=== PATIENT | female | born 1930 | race Caucasian/White ===

== ENCOUNTER 2017-10-29 12:49 | Emergency (ER) | payer MEDICARE ==
[~2017-10-29] VITALS: Ht 165.1 cm; Wt 83.5 kg
[2017-10-29] MEDS ORDERED: IV NS 0.9% 1,000 ML BAG IV ONE (13:00)
--- NOTE | 2017-10-29 13:00 | NUR ---
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 PATIENT IS A/OX 2. BREATHING EVEN AND UNLABORED. NO SOB. VITALS STABLE. SAFETY AND COMFORT MEASURES IN PLACE. AWAITING MD ORDERS.
--- NOTE | 2017-10-29 13:20 | NUR ---
NEW IV STARTED ON LFA, 20 G. BLOOD DRAWN AND SENT TO LAB.
[2017-10-29 13:24] LABS: BASOPHILS # (AUTO) 0.4 /CMM (0.0-0.2); BASOPHILS % (AUTO) 3.2 % (0.0-2.0); EOSINOPHILS # (AUTO) 0.1 /CMM (0.0-0.7); EOSINOPHILS % (AUTO) 0.7 % (0.0-6.0); HEMATOCRIT 43 % (33-45); HEMOGLOBIN 14.5 g/dL (11.5-14.8); LYMPHOCYTES # (AUTO) 2.4 /CMM (0.8-4.8); LYMPHOCYTES % (AUTO) 19.4 % (20.0-44.0); MEAN CORPUSCULAR HEMOGLOBIN 28 PG (26.0-33.0); MEAN CORPUSCULAR HGB CONC 34 g/dl (31.0-36.0); MEAN CORPUSCULAR VOLUME 82 fL (82-100); MONOCYTES # (AUTO) 1.2 /CMM (0.1-1.30); MONOCYTES % (AUTO) 9.7 % (2.0-12.0); NEUTROPHILS # (AUTO) 8.4 /CMM (1.8-8.9); PLATELET COUNT (AUTO) 184 /CMM (150-450); RDW COEFFICIENT OF VARIATION 13.4 (11.5-15.0); RED BLOOD CELL COUNT(AUTO) 5.26 MIL/uL (4.0-5.2); WHITE BLOOD COUNT (AUTO) 12.4 K/uL (4.3-11.0)
[2017-10-29 13:39] LABS: INR 1.04 (0.85-1.15)
[2017-10-29 13:43] LABS: TROPONIN I < 0.017 ng/mL (0.00-0.056)
--- NOTE | 2017-10-29 13:45 | NUR ---
PATIENT TAKEN TO CT VIA STRETCHER.
--- NOTE | 2017-10-29 14:03 | NUR ---
PATIENT RETURNED FROM CT IN STABLE CONDITION.
[2017-10-29] MEDS ORDERED: LEVO125T8 PO (14:09)
[2017-10-29] MEDS ORDERED: ALEN70TA3 PO (14:09)
[2017-10-29] MEDS ORDERED: ASPI-1169 PO (14:09)
--- NOTE | 2017-10-29 14:15 | NUR ---
URINE OBTAINED AND SENT TO LAB.
[2017-10-29 14:33] LABS: APPEARANCE,URINE CLOUDY (CLEAR); BILIRUBIN,URINE NEGATIVE (NEGATIVE); BLOOD, URINE 3+ Ery/uL (NEGATIVE); COLOR,URINE YELLOW (YELLOW); KETONES,URINE NEGATIVE (NEGATIVE); LEUKOCYTE ESTERASE ,URINE NEGATIVE (NEGATIVE); NITRITE, URINE NEGATIVE (NEGATIVE); PROTEIN,URINE 1+ mg/dl (NEGATIVE); UGLUCOSE NEGATIVE (NEGATIVE); UROBILINOGEN,URINE 0.2 EU/dL (0.2)
[2017-10-29 14:55] LABS: CALCIUM, SERUM 9.2 mg/dL (8.5-10.1); CARBON DIOXIDE 27 mmol/L (21-32); CHLORIDE 99 mmol/L (98-107); CREATININE 1.1 mg/dL (0.6-1.3); GLUCOSE 110 mg/dL (74-106); POTASSIUM 4.1 mmol/L (3.5-5.1); SODIUM SERUM 137 mmol/L (136-145); UREA NITROGEN, BLOOD 16 mg/dL (7-18)
[2017-10-29 15:01] LABS: ALANINE AMINOTRANSFERASE 15 U/L (12-78); ALBUMIN 3.3 g/dL (3.4-5.0); ALKALINE PHOSPHATASE 82 U/L (46-116); ASPARTATE AMINOTRANSFERASE 21 U/L (15-37); BILIRUBIN,DIRECT 0.2 mg/dL (0.0-0.2); BILIRUBIN,TOTAL 1.1 mg/dL (0.2-1.0)
[2017-10-29 15:13] LABS: RBC,URINE 51-80 /HPF (0-2)
[2017-10-29 15:14] LABS: BACTERIA,URINE 1+ /HPF (None Seen); URINE AMORPHOUS URATE Few /HPF (None Seen)
--- NOTE | 2017-10-29 15:28 | NUR ---
IV removed. Catheter intact and site benign. Pressure and 4x4 applied to site. No bleeding noted.
[2017-10-29 15:30] VITALS: BP 179/94
--- NOTE | 2017-10-29 15:30 | NUR ---
REFLEX LACTIC ACID NOT NEEDED PER DR HARMON SINCE PATIENT IS BEING D/C'D HOME
--- NOTE | 2017-10-29 15:40 | NUR ---
Patient discharged to home in stable condition. Written and verbal after care instructions given. Patient verbalizes understanding of instruction.
[2017-10-31] MEDS ORDERED: LEVO250T2 PO (17:26)
== END 2017-10-29 15:31 | disposition home or self-care (01) ==
LOC: ER 12:50
DX: N20.0 Calculus of kidney (principal); R41.82 Altered mental status, unspecified; E03.9 Hypothyroidism, unspecified; I44.7 Left bundle-branch block, unspecified; M48.56XA Collapsed vertebra, not elsewhere classified, lumbar region, initial encounter for fracture; M81.0 Age-related osteoporosis without current pathological fracture; Z79.82 Long term (current) use of aspirin; Z86.73 Personal history of transient ischemic attack (TIA), and cerebral infarction without residual deficits; Z88.0 Allergy status to penicillin
CPT/HCPCS: 36415; 71045; 74176; 80048; 80076; 81001; 83605; 84484; 85025; 85730; 87040 ×2; 87086; 93005; 96360; 99285; A4606; J7030; 81000-TC; Z7610

== ENCOUNTER 2017-10-29 18:11 | Inpatient (IN) | payer MEDICARE ==
[~2017-10-29] VITALS: Ht 165.1 cm; Wt 83.5 kg
[~2017-10-29 18:11] MED LIST: ALEN70TA3 PO; ASPI-1169 PO; LEVO125T8 PO
--- NOTE | 2017-10-29 18:11 | NUR ---
Patient brought back into ER by son for experiencing word salad and confusion since 1600. Patient is currently a/ox 2-3, breathing even and unlabored. No other neuro deficits noted. NAD, vitals stable. safety and comfort measures in place. awaiting md orders.
--- NOTE | 2017-10-29 18:14 | NUR ---
CALLED [facility]'S TELESTROKE HOTLINE, SPOKE WITH ZACHERY, PRESENTED PT, AWAITING CALL BACK FROM (NEUROLOGIST).
--- NOTE | 2017-10-29 18:16 | NUR ---
PATIENT TAKEN TO CT VIA STRETCHER.
--- NOTE | 2017-10-29 18:29 | NUR ---
PATIENT RETURNED FROM CT IN STABLE CONDITION.
[2017-10-29] MEDS ORDERED: LEVOFLOXACIN 750 MG /D5W 150ML 150 ML IV ONE (18:30)
--- NOTE | 2017-10-29 18:45 | NUR ---
NEW IV STARTED ON LFA, 20 G.
--- NOTE | 2017-10-29 18:50 | NUR ---
NIHSS COMPLETED, SCORE 1, TELE NEUROLOGIST ALSO EVALUATED PATIENT.
--- NOTE | 2017-10-29 18:55 | NUR ---
SWALLOW SCREEN COMPLETED, PATIENT PASSED. NO COMPLICATIONS NOTED.
--- NOTE | 2017-10-29 18:57 | NUR ---
CALLED NURSING SUP. FOR ICU BED
--- NOTE | 2017-10-29 19:24 | NUR ---
REPORT GIVEN TO MEGAN RAVI FOR BARBARA.
--- NOTE | 2017-10-29 19:36 | NUR ---
REPORT GIVEN TO INGRID
[2017-10-29] MEDS ORDERED: ASPIRIN 325 MG TABLET PO ONE (20:00)
[2017-10-29] MEDS ORDERED: IV NS 0.9% 1,000 ML IV PRN (20:13)
[2017-10-29] MEDS ORDERED: Z GUARD REMEDY 2 OZ OINT TP PRN (20:30)
[2017-10-29] MEDS ORDERED: HYDROCODONE/APAP 5/325MG 1 EACH TABLET PO PRN (20:30)
[2017-10-29] MEDS ORDERED: HYDROCODONE/APAP 10/325MG 1 EA TABLET PO PRN (20:30)
[2017-10-29] MEDS ORDERED: LEVOFLOXACIN 750 MG /D5W 150ML 750 MG in PREMIX 1 EA IV SCH (20:30)
[2017-10-29] MEDS ORDERED: ONDANSETRON HCL/PF 4 MG/2 ML VIAL IVP PRN (20:30)
[2017-10-29] MEDS ORDERED: ACETAMINOPHEN 325 MG TABLET PO PRN (20:30)
[2017-10-29] MEDS ORDERED: MORPHINE SULFATE INJ 4 MG/ML DISP.SYRIN IV PRN (20:30)
[2017-10-29] MEDS ORDERED: ZOLPIDEM TARTRATE 5 MG TABLET PO PRN (20:30)
[2017-10-29 21:40] VITALS: BP 122/60
[2017-10-29] MEDS: IV D5/0.45 NACL 1,000 ML IV PRN (21:46)
--- NOTE | 2017-10-29 21:46 | NUR ---
RESIDENTIAL PROGRAM MANAGER. ADMISSION. RECEIVED THE PT FROM ER VIA [facility] ROOM 260 FOR RT MAXILLARY SINUS AND CLAIR ETHMOID AIR CELLS, SECONDARY TO UTI .PT AWAKE. ALERT, FOLLOW COMMANDS. COMMUNICATIONS SYSTEMS ENGINEER SHOWING NSR. IV LT HAND 20G. IVF D51/2NS 80ML/H. PT IS ROOM AIR. SAT 95%, NO ACUTE DISTRESS NOTED, HOB ELEVATED. TURN AND REPOSITION PT INDEPENDENT. WILL CONTINUE TO MONITOR VITALS.
[2017-10-29 22:00] VITALS: BP 110/60
--- NOTE | 2017-10-29 22:56 | NUR ---
BELT DRESSER. PT IS NPO.
[2017-10-29 23:00] VITALS: BP 135/65
[2017-10-30] VITALS (26 sets, daily range): BP systolic 91–181; BP diastolic 35–102
[2017-10-30 05:08] LABS: BASOPHILS # (AUTO) 0.1 /CMM (0.0-0.2); BASOPHILS % (AUTO) 0.5 % (0.0-2.0); EOSINOPHILS # (AUTO) 0.1 /CMM (0.0-0.7); EOSINOPHILS % (AUTO) 1.4 % (0.0-6.0); HEMATOCRIT 40 % (33-45); HEMOGLOBIN 13.3 g/dL (11.5-14.8); LYMPHOCYTES # (AUTO) 2.4 /CMM (0.8-4.8); MEAN CORPUSCULAR HEMOGLOBIN 28 PG (26.0-33.0); MEAN CORPUSCULAR HGB CONC 34 g/dl (31.0-36.0); MEAN CORPUSCULAR VOLUME 83 fL (82-100); MONOCYTES # (AUTO) 0.8 /CMM (0.1-1.30); MONOCYTES % (AUTO) 8.6 % (2.0-12.0); NEUTROPHILS # (AUTO) 6.3 /CMM (1.8-8.9); NEUTROPHILS % (AUTO) 64.5 % (43.0-81.0); PLATELET COUNT (AUTO) 153 /CMM (150-450); RDW COEFFICIENT OF VARIATION 13.9 (11.5-15.0); RED BLOOD CELL COUNT(AUTO) 4.77 MIL/uL (4.0-5.2); WHITE BLOOD COUNT (AUTO) 9.7 K/uL (4.3-11.0)
[2017-10-30 05:27] LABS: CALCIUM, SERUM 8.4 mg/dL (8.5-10.1); CARBON DIOXIDE 27 mmol/L (21-32); CHLORIDE 100 mmol/L (98-107); CREATININE 0.8 mg/dL (0.6-1.3); GLUCOSE 98 mg/dL (74-106); MAGNESIUM 1.7 mg/dL (1.8-2.4); PHOSPHORUS 3.4 mg/dL (2.5-4.9); POTASSIUM 3.4 mmol/L (3.5-5.1); SODIUM SERUM 135 mmol/L (136-145); UREA NITROGEN, BLOOD 12 mg/dL (7-18)
[2017-10-30 05:33] LABS: CHOLESTEROL 147 mg/dL (<200); HDL CHOLESTEROL 81 mg/dL (40-60); LDL 58 mg/dL (0-99); THYROID STIMULATING HORMONE 4.918 uIU/mL (0.358-3.74); TRIGLYCERIDES 64 mg/dL (30-150)
[2017-10-30] MEDS ORDERED: LEVOFLOXACIN 250 MG /D5W 50 ML 250 MG in PREMIX 1 EA IV SCH ×2 (05:45→20:00)
[2017-10-30] MEDS: IV D5/0.45 NACL 1,000 ML IV PRN (05:54)
--- NOTE | 2017-10-30 06:26 | NUR ---
WELLNESS PROGRAM ADMINISTRATOR. PT IS NPO.
[2017-10-30] MEDS ORDERED: LEVOTHYROXINE SODIUM 125 MCG TABLET PO SCH ×2 (07:30→08:48)
[2017-10-30] MEDS ORDERED: PANTOPRAZOLE 40 MG VIAL IV SCH (07:30)
--- NOTE | 2017-10-30 07:30 | NUR ---
ICU/RN INITIAL NOTES,AM RECEIVED REPORT FROM NIGHT NURSE. PT RESTING IN BED COMFORTABLY. PT ALERT, FOLLOWS COMMANDS, PERIODS OF CONFUSION NOTED. ON ROOM AIR, NO ACUTE RESPIRATORY DISTRESS NOTED. ON TELE, SINUS. PIV PATENT AND INTACT, NO S/S OF INFECTION OR INFILTRATION NOTED, IV FLUIDS INFUSING ORDERED. ALL NEEDS WILL BE ATTENDED TO, SAFETY MEASURES TAKEN, BED IN LOW POSITION, SIDE RAILS UP, CALL LIGHT WITHIN REACH. UROLOGY CONSULT PENDING.
[2017-10-30] MEDS ORDERED: IV D5/0.45 NACL 1,000 ML IV PRN (07:59)
[2017-10-30] MEDS: Magnesium 1GM/D5W 100ML PREMIX 100 ML IV SCH ×2 (08:17→09:20)
[2017-10-30] MEDS ORDERED: LEVOTHYROXINE SODIUM 100 MCG TABLET PO SCH (08:57)
[2017-10-30] MEDS ORDERED: IV D5/ 0.9% NACL 1,000 ML IV ONE (09:00)
[2017-10-30] MEDS ORDERED: IV D5/ 0.9% NACL 1,000 ML IV PRN (09:00)
[2017-10-30] MEDS: POTASSIUM CHLORIDE 20 MEQ TAB.PRT.SR PO SCH (09:04)
[2017-10-30] MEDS ORDERED: POTASSIUM CL. PREMIX PERIPHER. 50 ML IV SCH (09:15)
[2017-10-30] MEDS: LEVOTHYROXINE SODIUM 100 MCG TABLET PO SCH (09:19)
[2017-10-30] MEDS: ENOXAPARIN SODIUM 30 MG/0.3 ML DISP.SYRIN SQ SCH (10:30)
[2017-10-30] MEDS: TAMSULOSIN 0.4 MG CAP.SR.24H PO SCH (10:56)
--- NOTE | 2017-10-30 12:45 | NUR ---
ICU/RN: PT TAKEN TO MRI BRAIN VIA WHEELCHAIR, ACCOMPANIED BY . VSS, NO DISTRESS. WILL CONTINUE TO MONITOR AND ASSESS.
--- NOTE | 2017-10-30 15:24 | NUR ---
ICU/RN: LEFT UPPER ARM PICC LINE INSERTED PER MD ORDERS., NO S/S OF BLEEDING NOTED. WILL CONTINUE TO MONITOR.
[2017-10-30] MEDS: ASPIRIN 81 MG TAB.CHEW PO SCH (17:00)
--- NOTE | 2017-10-30 19:27 | NUR ---
ICU/RN ENDING NOTES,AM REPORT ENDORSED TO NIGHT NURSE FOR CONTINUATION OF CARE. ALL NEEDS ATTENDED TO, SAFETY MEASURES TAKEN, BED IN LOW POSITION, SIDE RAILS UP, CALL LIGHT WITHIN IN REACH. PT ON ROOM AIR, SINUS ON TELE, VSS. BED ALARM ON AND AUDIBLE, SIDE RIALS UP. WILL CONTINUE CARE.
--- NOTE | 2017-10-30 19:30 | NUR ---
BLENDING SUPERVISOR INITIAL NOTES RECEIVED PATIENT AWAKE, ALERT, AND ORIENTED. NO RESPIRATORY DISTRESS NOTED, ON ROOM AIR. DENIES PAIN OR DISCOMFORT. SKIN WARM AND DRY TO TOUCH. ON TELE MONITOR SR WITH BBB 85. WITH BIJAN MIDLINE PATENT AND INTACT. SIDE RAILS UP AND LOCKED. BED KEPT AT LOWEST POSITION. CALL LIGHT KEPT WITHIN EASY REACH. BED ALARM ON. FALL PRECAUTIONS OBSERVED. WILL CONTINUE TO MONITOR.
--- NOTE | 2017-10-30 20:55 | NUR ---
NOVELTY TWISTER TENDER NOTES DR. BLACKWOOD AT BEDSIDE. INFORMED REGARDING MIDLINE NOT WORKING. PER MERCED PUSH PO FLUIDS FOR NOW, AND HOLD OF ON IVF AND TO CHANGE LEVAQUIN IV TO PO.
[2017-10-30] MEDS ORDERED: LEVOFLOXACIN (250MG) 250 MG TABLET PO SCH (21:00)
[2017-10-30] MEDS ORDERED: GENTAMICIN IV ONE (23:00)
[2017-10-30] MEDS ORDERED: NS 0.9% IV ONE (23:00)
--- NOTE | 2017-10-30 23:40 | NUR ---
SPOKE WITH PHARMACIST AUTOMATIC OUTSOLE CUTTER, INFORMED PATIENT DOES NOT HAVE A WORKING IV LINE AT THIS TIME. AND PER SON DR. BLACKWOOD, NO IV LINE AT THIS TIME. NON-ADMIN IV GENTA.
[2017-10-31] VITALS (21 sets, daily range): BP systolic 90–142; BP diastolic 34–95
--- NOTE | 2017-10-31 02:00 | NUR ---
ACTIVE DIRECTORY ARCHITECT NOTES PATIENT SLEEPING COMFORTABLY. NO S/S OF PAIN OR DISCOMFORT. NO RESPIRATORY DISTRESS NOTED. NO N/V. WILL CONTINUE TO MONITOR.
--- NOTE | 2017-10-31 05:34 | NUR ---
RECEIVED PHONE CALL FROM DR. BLACKWOOD, REQUESTING FOR PT TO SEE HIS MOTHER TO BE SURE IT'S SAFE FOR HER TO GO HOME. POSSIBLY WILL BE DISCHARGED TODAY. NOTED.
[2017-10-31 05:38] LABS: BASOPHILS % (AUTO) 0.4 % (0.0-2.0); EOSINOPHILS # (AUTO) 0.2 /CMM (0.0-0.7); EOSINOPHILS % (AUTO) 3.2 % (0.0-6.0); HEMATOCRIT 41 % (33-45); HEMOGLOBIN 13.5 g/dL (11.5-14.8); LYMPHOCYTES # (AUTO) 2.1 /CMM (0.8-4.8); LYMPHOCYTES % (AUTO) 28.7 % (20.0-44.0); MEAN CORPUSCULAR HEMOGLOBIN 28 PG (26.0-33.0); MEAN CORPUSCULAR HGB CONC 34 g/dl (31.0-36.0); MEAN CORPUSCULAR VOLUME 83 fL (82-100); MONOCYTES # (AUTO) 0.8 /CMM (0.1-1.30); MONOCYTES % (AUTO) 11.3 % (2.0-12.0); NEUTROPHILS % (AUTO) 56.4 % (43.0-81.0); PLATELET COUNT (AUTO) 157 /CMM (150-450); RDW COEFFICIENT OF VARIATION 14.1 (11.5-15.0); RED BLOOD CELL COUNT(AUTO) 4.86 MIL/uL (4.0-5.2); WHITE BLOOD COUNT (AUTO) 7.2 K/uL (4.3-11.0)
[2017-10-31 05:50] LABS: ALANINE AMINOTRANSFERASE 18 U/L (12-78); ALBUMIN 2.8 g/dL (3.4-5.0); ALKALINE PHOSPHATASE 63 U/L (46-116); ASPARTATE AMINOTRANSFERASE 19 U/L (15-37); BILIRUBIN,TOTAL 0.9 mg/dL (0.2-1.0); CALCIUM, SERUM 8.9 mg/dL (8.5-10.1); CARBON DIOXIDE 26 mmol/L (21-32); CHLORIDE 97 mmol/L (98-107); CREATININE 0.9 mg/dL (0.6-1.3); GLUCOSE 96 mg/dL (74-106); PHOSPHORUS 4.6 mg/dL (2.5-4.9); SODIUM SERUM 123 mmol/L (136-145); TOTAL PROTEIN, SERUM 7.1 g/dL (6.4-8.2); UREA NITROGEN, BLOOD 16 mg/dL (7-18)
--- NOTE | 2017-10-31 06:07 | NUR ---
RELAYED SODIUM AND POTASSIUM RESULTS TO DR. BLACKWOOD WITH ORDERS FOR STAT BMP. NOTED, LAB INFORMED.
--- NOTE | 2017-10-31 06:32 | NUR ---
RETAIL SPECIAL EVENT ASSOCIATE CLOSING NOTES NO SIGNIFICANT CHANGES OVERNIGHT. NO C/O PAIN OR DISCOMFORT. NO SOB. ON ROOM AIR. NO N/V. ALL NEEDS ANTICIPATED AND MET. FALL PRECAUTIONS OBSERVED. AMBULATES STEADY. SIDE RAILS UP AND LOCKED. BED KEPT AT LOWEST POSITION. CALL LIGHT KEPT WITHIN EASY REACH. WILL ENDORSE CONTINUITY OF CARE TO AM NURSE.
[2017-10-31 06:47] LABS: CALCIUM, SERUM 8.6 mg/dL (8.5-10.1); CARBON DIOXIDE 28 mmol/L (21-32); CHLORIDE 99 mmol/L (98-107); CREATININE 0.9 mg/dL (0.6-1.3); GLUCOSE 99 mg/dL (74-106); POTASSIUM 3.4 mmol/L (3.5-5.1); SODIUM SERUM 136 mmol/L (136-145); UREA NITROGEN, BLOOD 16 mg/dL (7-18)
--- NOTE | 2017-10-31 06:56 | NUR ---
RELAYED STAT BMP TO DR. BLACKWOOD.
--- NOTE | 2017-10-31 07:19 | NUR ---
INSULATION PACKER NOTES RECEIVED ORDERS FROM DR. BLACKWOOD [facility] [id number]. NOTED. AM NURSE INFORMED.
--- NOTE | 2017-10-31 07:25 | NUR ---
INFORMED DR. BLACKWOOD PATIENT IS GETTING KDUR 40MEQ AT 0900. D/C ORDER FOR 20MEQ KCL. NOTED AND INFORMED AM NURSE.
[2017-10-31] MEDS ORDERED: POTASSIUM CHLORIDE 20 MEQ TAB.PRT.SR PO ONE (07:30)
--- NOTE | 2017-10-31 07:45 | NUR ---
ICU/RN: Pt received in bed, no distress noted, requesting for assistance to bathroom. Voided clear, dark yellow urine; strained, no stones observed. Assisted with AM care, however pt suddenly experienced generalized weakness, sudden confusion and required 2 person max assist to bed. Neuro check performed once in bed, pt able to verbalize needs, follow commands and displays bilat upper and lower ext strength. Pt SBP down from 130's down to 110's; orthostatic BP noted. Alarm sounds audible, safety measures in place. Educated pt on need to call for assistance. Verbalized understanding. Will cont to monitor pt.
--- NOTE | 2017-10-31 08:30 | NUR ---
ICU/RN: Juvenal Hernandez notified of AM events, new orders noted and carried out.
[2017-10-31] MEDS: LEVOTHYROXINE SODIUM 100 MCG TABLET PO SCH (08:31)
[2017-10-31] MEDS: TAMSULOSIN 0.4 MG CAP.SR.24H PO SCH (08:31)
[2017-10-31] MEDS: POTASSIUM CHLORIDE 20 MEQ TAB.PRT.SR PO SCH (08:31)
[2017-10-31] MEDS: ASPIRIN 81 MG TAB.CHEW PO SCH (08:31)
[2017-10-31] MEDS: ENOXAPARIN SODIUM 30 MG/0.3 ML DISP.SYRIN SQ SCH (10:30)
[2017-10-31] MEDS ORDERED: IV NS 0.9% 1,000 ML IV PRN (10:30)
[2017-10-31] MEDS ORDERED: FEE PK DOSING 1 MIN EA MC ONE (11:57)
[2017-10-31] MEDS ORDERED: GENTAMICIN 100 MG in IV D5W 100 ML IV SCH (13:00)
--- NOTE | 2017-10-31 13:40 | NUR ---
ICU/RN: Dr Sagar nelson; updated on pt status, no stones noted during urine strain. Pt also denies pain and discomfort. Orders for CT ABD wo contrast noted. Pt son updated.
--- NOTE | 2017-10-31 14:15 | NUR ---
ICU/RN: Pt ambulated in hallway with PT, no distress. Mild gait disturbance noted, requires standby assist. Pt refuses walker per PT recommendation. Orthostatic VS reviewed and pt educated. Bed alarm on, will cont to monitor pt.
--- NOTE | 2017-10-31 15:30 | NUR ---
ICU/RN: Pt sent to CT; transported via ACLS protocol, accompanied by RN. Pt tolerated imaging well. Assisted back to bed, no distress noted.
[2017-10-31] MEDS ORDERED: LEVO250T2 PO (17:26)
--- NOTE | 2017-10-31 18:19 | NUR ---
ICU/RN: Pt discharged after dinner, tolerated meal well. No evidence of stones in strained urine throughout shift. Pt educated on discharge information, Dr Perez and Juvenal Hernandez, TOP CLEANER discussed discharge plans. Pt to f/u with Dr Keith as outpt, and will take meds as prescribed. BIJAN MCCANN dc'd, catheter tip intact. Pressure applied, pt removed dressing after bleeding stopped. All paperwork and belongings signed and accounted for. Pt refused wheelchair and walker to lobby, accompanied by 2 RN's. Sent home via private car driven by son.
== END 2017-10-31 18:19 | disposition home or self-care (01) | DRG 689 ==
LOC: ER 18:13 → ICU 19:37
PROVIDERS: ADMIT Nurse Practitioner Acute Care; ATTEND Nurse Practitioner Acute Care
PROC: 05H633Z Insertion of Infusion Device into Left Subclavian Vein, Percutaneous Approach (ICD-10-PCS; principal; 2017-10-30)
PROC: B547ZZA Ultrasonography of Left Subclavian Vein, Guidance (ICD-10-PCS; 2017-10-30)
DX: N13.6 Pyonephrosis (principal); G92 Toxic encephalopathy; E87.1 Hypo-osmolality and hyponatremia; E83.42 Hypomagnesemia; N39.0 Urinary tract infection, site not specified; M81.0 Age-related osteoporosis without current pathological fracture; Z86.73 Personal history of transient ischemic attack (TIA), and cerebral infarction without residual deficits; Z79.83 Long term (current) use of bisphosphonates; Z79.82 Long term (current) use of aspirin; E03.9 Hypothyroidism, unspecified; Z88.0 Allergy status to penicillin; Z79.899 Other long term (current) drug therapy; E78.5 Hyperlipidemia, unspecified; E87.6 Hypokalemia; I10 Essential (primary) hypertension; I25.10 Atherosclerotic heart disease of native coronary artery without angina pectoris; J32.4 Chronic pansinusitis; J32.0 Chronic maxillary sinusitis
CPT/HCPCS: 36415; 70450-TC; 70551-TC; 71045-TC; 80048-TC; 80053-TC; 80061-TC; 82306; 82533; 82962-TC; 83735-TC; 84100-TC; 84439-TC; 84443-TC; 85025-TC; 85652-TC; 87081-TC; 93307-TC; A4216; A4606; C9113; J1580; J1650; J1956; J3475; J3490; J7030; J7042; J7060; Z7610

== ENCOUNTER 2017-11-18 11:16 | Outpatient (CLI) | payer MEDICARE ==
[~2017-11-18 11:16] MED LIST changes: +LEVO250T2 PO
== END 2017-11-18 23:59 | disposition home or self-care (01) ==
LOC: RAD 11:16
PROVIDERS: ATTEND Internal Medicine Pulmonary Disease
DX: R10.9 Unspecified abdominal pain (principal)
CPT/HCPCS: 74018